=== PATIENT | female | born 1965 | race Caucasian/White ===

== ENCOUNTER → 2021-03-06 | Day surgery (SDC) | payer OTHER ==
[~2021-03-06] MED LIST: ACETAMINOPHEN 1000 MG/100 ML 100 ML IV ONE; BUPIVACAINE 0.25% 30ML SDV ONE; CLINDAMYCIN PHOS 900MG/ 50ML 50 ML IV ONE; DEXAMETHASONE SOD PHOS INJ 4 MG/ML VIAL ONE; FENTANYL CITRATE/PF 100MCG/2 ML INJ ONE; HYDROCODON-ACE1 EA11 PO; HYDROMORPHONE 1MG/1ML INJ ONE; KETOROLAC TROMETHAMINE 30 MG/ML VIAL ONE; LIDOCAINE 1% W/EPINEPHRINE 20 ML VIAL ONE; LIDOCAINE HCL 2% LOCAL INJ 5 ML SDV VIAL INJ ONE; LORAZEPAM INJ 2 MG/ML VIAL ONE; MIDAZOLAM HCL 2 MG/2 ML VIAL ONE; MORPHINE SULFATE INJ 4 MG/ML INJ 1ML ONE; ONDANSETRON HCL INJ 2MG/ML 2ML 2 MG/ML VIAL ONE; POVIDONE IODINE 0.05% 0.05 % ML PO ONE; PROPOFOL IV EMULSION 10 MG/ML 20 ML VIAL ONE; SEVOFLURANE INHAL SOLN 250 ML PEN BTL ONE; SIMVASTATIN40 MG PO; ULTRAM 50MG50 MG PO; ZESTRIL10 MG PO; ZOLOFT50 MG PO
[2021-03-06 15:00] VITALS: BP 114/80
== END | disposition home or self-care (01) ==
LOC: OR 07:52
PROVIDERS: ATTEND Orthopaedic Surgery
DX: S83.241A Other tear of medial meniscus, current injury, right knee, initial encounter (principal); S83.281A Other tear of lateral meniscus, current injury, right knee, initial encounter; S83.411A Sprain of medial collateral ligament of right knee, initial encounter; M22.41 Chondromalacia patellae, right knee; M67.51 Plica syndrome, right knee; M23.41 Loose body in knee, right knee; E78.5 Hyperlipidemia, unspecified; I10 Essential (primary) hypertension; K21.9 Gastro-esophageal reflux disease without esophagitis; F32.9 Major depressive disorder, single episode, unspecified; W20.8XXA Other cause of strike by thrown, projected or falling object, initial encounter; Y92.009 Unspecified place in unspecified non-institutional (private) residence as the place of occurrence of the external cause; Z88.0 Allergy status to penicillin; Z88.2 Allergy status to sulfonamides; Z01.810 Encounter for preprocedural cardiovascular examination; Z01.812 Encounter for preprocedural laboratory examination; Z20.822 Contact with and (suspected) exposure to COVID-19; Z85.828 Personal history of other malignant neoplasm of skin
CPT/HCPCS: 29882; 93005; C1893; J0131; J1100; J1170; J1885; J2001; J2060; J2250; J2270; J2405; J2704; J3010; U0002